=== PATIENT | female | born 1955 | race Native Hawaiian/Other Pacific Islander ===

== ENCOUNTER 2018-11-17 11:18 | Outpatient (CLI) | payer SELFPAY | END 2018-11-17 11:19 | disposition home or self-care (01) | LOC: CARDIO 11:18 | DX: C50.912 Malignant neoplasm of unspecified site of left female breast (principal); Z17.1 Estrogen receptor negative status [ER-]; C78.7 Secondary malignant neoplasm of liver and intrahepatic bile duct ==

== ENCOUNTER 2018-11-18 14:42 | Observation (INO) | payer MEDICAID, SELFPAY ==
[2018-11-18 15:43] VITALS: BMI 28.3
[2018-11-18] MEDS ORDERED: Sodium Chloride 0.9% 1,000 ML IV SCH (16:00)
--- NOTE | 2018-11-18 16:07 | ED PDOC ---
Arrival/HPI - General Time Seen by Provider: 11/18/18 15:29 Historian: Patient - History of Present Illness Narrative History of Present Illness (Text): 11/18/18 15:55 63 year old female, with past medical history of anemia, bronchitis, gallbladder disease, HTN, hypercholesterolemia, renal calculi, metastatic breast cancer s/p left breast mastectomy and metastasis to cerebellum and lungs on chemotherapy and radiation, CKD and seizure disorder, presents to the ED for evaluation of shortness of breath, dizziness and nausea since prior to arrival. Patient reports similar symptoms in August when she experienced loss of consciousness. Patient reports tingling sensation to her extremities secondary to chemotherapy. Patient denies any other somatic complaints. Patient denies any fever, chills, vomiting, diarrhea, abdominal pain, chest pain, headache, neck pain or any other complaints. Patient denies any smoking, drinking or illicit drug use. Oncologist/Market Research Intern: Dr. Pedro Time/Duration: 4-6 hours Symptom Onset: Gradual Symptom Course: Unchanged Context: Home Past Medical History - Provider Review Nursing Documentation Reviewed: Yes - Infectious Disease Hx of Infectious Diseases: None - Cardiac Hx Hypertension: Yes - Pulmonary Hx Bronchitis: Yes - Neurological Hx Seizures: Yes - HEENT Hx HEENT Disorder: No - Renal Hx Renal Disorder: Yes Hx Kidney Stones: Yes (Right kidney) - Endocrine/Metabolic Hx Endocrine Disorders: No - Hematological/Oncological Hx Anemia: Yes - Integumentary Hx Dermatological Disorder: No - Musculoskeletal/Rheumatological Hx Fractures: Yes (Right Wrist) - Gastrointestinal Hx Gall Bladder Disease: Yes - Genitourinary/Gynecological Hx Genitourinary Disorders: Yes Hx Hematuria: Yes Hx Urinary Tract Infection: Yes Other/Comment: HAS STENTS - Psychiatric Hx Substance Use: No - Surgical History Hx Mastectomy: Yes (LEFT MASTECTOMY 2006) Hx Vascular Access Device: Yes (RT. CHEST) Other/Comment: CYSTO WITH STENTS LITHOTRIPSY /LUNG BIOPSY CT GUIDED - Anesthesia Hx Anesthesia: Yes Hx Anesthesia Reactions: No Hx Malignant Hyperthermia: No - Suicidal Assessment Feels Threatened In Home Enviroment: No Family/Social History - Physician Review Nursing Documentation Reviewed: Yes Family/Social History: Unknown Family HX Smoking Status: Never Smoked Hx Alcohol Use: No Hx Substance Use: No Allergies/Home Meds Allergies/Adverse Reactions: Allergies lapatinib ditosylate [From Tykerb] Adverse Reaction (Verified 11/18/18 16:55) RASH Home Medications: Home Meds Medication Instructions Recorded Confirmed Lisinopril [Zestril] 5 mg PO DAILY 03/24/18 11/18/18 RX: Gabapentin 300 mg PO BID 03/24/18 11/18/18 RX: Levetiracetam 750 mg PO BID 03/24/18 11/18/18 oxyCODONE/Acetaminophen [Percocet 1 tab PO Q6 PRN 03/24/18 11/18/18 5/325 mg Tab] Dexamethasone [Decadron] 2 mg PO QOTHERDAY 11/18/18 11/18/18 Review of Systems - Physician Review All systems were reviewed & negative as marked: Yes - Review of Systems Constitutional: absent: Fevers Respiratory: SOB. absent: Cough Cardiovascular: absent: Chest Pain Gastrointestinal: Nausea. absent: Abdominal Pain, Diarrhea, Vomiting Genitourinary Female: absent: Dysuria, Hematuria Musculoskeletal: absent: Back Pain, Neck Pain Skin: absent: Rash Neurological: Dizziness. absent: Headache Physical Exam Temperature: Afebrile Blood Pressure: Normal Pulse: Regular Respiratory Rate: Normal Appearance: Positive for: Well-Appearing, Non-Toxic, Comfortable Pain Distress: None Mental Status: Positive for: Alert and Oriented X 3 - Systems Exam Head: Present: Atraumatic, Normocephalic Pupils: Present: PERRL Extroacular Muscles: Present: EOMI Conjunctiva: Present: Normal Ears: Present: Normal Mouth: Present: Moist Mucous Membranes Neck: Present: Normal Range of Motion. No: Meningeal Signs Respiratory/Chest: Present: Clear to Auscultation, Good Air Exchange. No: Respiratory Distress, Accessory Muscle Use Cardiovascular: Present: Regular Rate and Rhythm, Normal S1, S2. No: Murmurs Abdomen: No: Tenderness, Distention, Peritoneal Signs Back: Present: CVA Tenderness (left sided CVA tenderness) Upper Extremity: Present: Normal Inspection. No: Cyanosis, Edema Lower Extremity: Present: Normal Inspection. No: Edema Neurological: Present: GCS=15, CN II-XII Intact, Speech Normal Skin: Present: Warm, Dry, Normal Color. No: Rashes Psychiatric: Present: Alert, Oriented x 3, Normal Insight, Normal Concentration Medical Decision Making ED Course and Treatment: 11/18/18 15:55 Impression: 63 year old female presents to the ED for evaluation of sob, nausea and dizziness. On exam, pt notes she is unable to stand due to dizzines and feeling like she will syncopize, otherwise largely unremarkable neuro exam. Will seek CTPE for SOB. No fever, chills or night sweats. No trauma or fall. Pt denies any sudden onset of syncope or dizzy feeling, she notes progressive dizziness over the past week. Differential Diagnosis included but are not limited to: -- PE Plan: -- CTA -- EKG -- Labs -- IV Fluids -- zofran -- Urinalysis -- Reassess and disposition Prior Visits: Notes and results from previous visits were reviewed. Progress Notes: 11/18/18 21:25 labs largely unremarkable endorsed to Dr. Saenz- to admit to her service pt in NAD - RAD Interpretation Radiology Orders: 11/18/18 15:55 ANGIO CHEST PE PROTOCOL [CT] Stat - Medication Orders Current Medication Orders: Sodium Chloride (Sodium Chloride 0.9%) 1,000 mls @ 100 mls/hr IV .Q10H BAUDILIO Discontinued Medications Ondansetron HCl (Zofran Inj) 4 mg IVP STAT STA Stop: 11/18/18 15:56 - Scribe Statement The provider has reviewed the documentation as recorded by the Scribe Glen Mancini. All medical record entries made by the Scribe were at my direction and personally dictated by me. I have reviewed the chart and agree that the record accurately reflects my personal performance of the history, physical exam, medical decision making, and the department course for this patient. I have also personally directed, reviewed, and agree with the discharge instructions and disposition. Disposition/Present on Arrival - Present on Arrival Any Indicators Present on Arrival: No History of DVT/PE: No History of Uncontrolled Diabetes: No Urinary Catheter: No History Surgical Site Infection Following: None - Disposition Have Diagnosis and Disposition been Completed?: Yes Diagnosis: Dizzy Disposition Time: 20:28 Patient Problems: Current Active Problems Problem Status Onset Dizzy Acute Condition: STABLE
[2018-11-18 17:35] LABS: HEMOGLOBIN 13.9 g/dL (12.0-16.0); LYMPH # 0.6 (1.2-3.4); MEAN CELL VOLUME 86.5 fl (80.0-105.0); MEAN CORPUSCULAR HEMOGLOBIN 28.8 pg (25.0-35.0); MEAN CORPUSCULAR HGB CONC 33.3 g/dl (31.0-37.0); MEAN PLATELET VOLUME 8.6 fl (7.0-11.0); MONO # 0.2 (0.1-0.6); MONO % 3.7 % (1.0-6.0); RBC 4.82 10^6/uL (3.5-6.1); WHITE BLOOD COUNT 4.9 10^3/uL (4.5-11.0)
[2018-11-18 17:49] LABS: ALB/GLOB RATIO 1.2 (1.1-1.8); ALBUMIN 3.8 g/dL (3.0-4.8); ALT/SGPT 11 U/L (7-56); AST/SGOT 27 U/L (14-36); BLOOD UREA NITROGEN 15 mg/dL (7-21); CALCIUM 9.3 mg/dL (8.4-10.5); GFR NON-AFRICAN AMERICAN > 60
[2018-11-18 17:59] LABS: TROPONIN I < 0.01 ng/mL
[2018-11-18] MEDS ORDERED: Iodixanol 320 MG/ML 100 ML BOTTLE IV ONE (19:24)
--- NOTE | 2018-11-18 22:48 | CARD ---
APPROVED REPORT Date of service: 11/18/2018 EKG Measurement Heart [id number] <Conclusion> Normal sinus rhythm Moderate voltage criiteria for LVH Borderline ECG
--- NOTE | 2018-11-18 23:36 | CP.PCM.HP ---
<Radha Saenz - Last Filed: 11/19/18 02:07> Meds Allergies/Adverse Reactions: Allergies Allergy/AdvReac Type Severity Reaction Status Date / Time diphenhydramine AdvReac RASH Verified 11/18/18 23:35 [From Benadryl] lapatinib ditosylate AdvReac RASH Verified 11/18/18 16:55 [From Tykerb] Results - Vital Signs Recent Vital Signs: Last Vital Signs Temp 99 F 11/18/18 15:42 Pulse 78 11/18/18 18:36 Resp 18 11/18/18 18:36 BP 114/59 L 11/18/18 18:36 Pulse Ox 96 11/18/18 18:36 - Labs Result Diagrams: 11/18/18 17:20 11/18/18 17:20 Labs: Laboratory Results - last 24 hr 11/18/18 11/18/18 17:20 17:20 WBC 4.9 RBC 4.82 Hgb 13.9 Hct 41.7 MCV 86.5 MCH 28.8 MCHC 33.3 RDW 15.0 H Plt Count 171 MPV 8.6 Neut % (Auto) 83.3 H Lymph % (Auto) 13.0 L [place] % (Auto) 3.7 Eos % (Auto) 0.0 L Baso % (Auto) 0.0 Lymph # (Auto) 0.6 L [place] # (Auto) 0.2 Eos # (Auto) 0.0 Baso # (Auto) 0.00 Absolute Neuts (auto) 4.09 Sodium 139 Potassium 4.0 Chloride 105 Carbon Dioxide 27 Anion Gap 11 BUN 15 Creatinine 0.7 Est GFR ( Amer) > 60 Est GFR (Non-Af Amer) > 60 Random Glucose 147 H Calcium 9.3 Total Bilirubin 0.5 AST 27 ALT 11 Alkaline Phosphatase 87 Troponin I < 0.01 Total Protein 6.9 Albumin 3.8 Globulin 3.1 Albumin/Globulin Ratio 1.2 Attending/Attestation - Attestation I have personally seen and examined this patient.: Yes I have fully participated in the care of the patient.: Yes I have reviewed all pertinent clinical information: Yes Notes (Text): 11/19/18 02:10 Pt seen with the resident by the bedside. Case discussed in detail. Agree with documentation,assessment and plan of treatment. <Del Schofield - Last Filed: 11/19/18 05:27> History of Present Illness - History of Present Illness History of Present Illness: Del Schofield, PGY1 H&P for Dr. 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 In the ED, Vitals: Temp 99, HR 82, BP 134/63, RR 18, SaO2 95%. Medical team was consulted for evaluation. Patient said that she had a previous episode of loss of consciousness in August, in which she had a fall and passed out. She was told that she had a seizure and it was at that time she was found to have metastatic cancer to the brain. Patient was recommended cyberknife treatment but it was never pursued. She is on chemo and radiation therapy. Last radiation therapy was on October 16, which she gets every 15 days or so. She said that since taking her chemo medications she has been feeling sick with associated dizziness and nausea. She has followed up with her heme/onc physician for over 10 years and she goes r egularly almost every 3 weeks. Patient mentions that she gets numbness and tingling in all her distal extremities. Otherwise, patient denies fevers, chills, diarrhea, abdominal pain, chest pain, and headache. was present at bedside. A full 12 point ROS was conducted and unremarkable except as stated above. PMD: Dr. Jones Heme/Onc: Dr. Schofieldanthingal Neurologist: Dr. Forman PMHx: anemia, bronchitis, gallbladder disease, HTN, hypercholesterolemia, renal calculi, metastatic breast cancer s/p left breast mastectomy and metastasis to brain and lungs on chemotherapy and radiation, CKD and seizure disorder PSHx: Left Breast Mastectomy with axillary evgeny removal Meds: see MAR Allergies: lapatinib ditosylate, benadryl SocialHx: denies smoking, EtOH, and recreational drug use. Lives with . 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 FamHx: aunt had breast cancer Present on Admission - Present on Admission Any Indicators Present on Admission: No Review of Systems - Review of Systems All systems: reviewed and no additional remarkable complaints except (as per HPI) Past Patient History - Infectious Disease Hx of Infectious Diseases: None - Past Medical History & Family History Past Medical History?: Yes - Past Social History Smoking Status: Never Smoked - CARDIAC Hx Hypertension: Yes - PULMONARY Hx Bronchitis: Yes - NEUROLOGICAL Hx Seizures: Yes - HEENT Hx HEENT Problems: No - RENAL Hx Chronic Kidney Disease: Yes Hx Kidney Stones: Yes (Right kidney) - ENDOCRINE/METABOLIC Hx Endocrine Disorders: No - HEMATOLOGICAL/ONCOLOGICAL Hx Anemia: Yes - INTEGUMENTARY Hx Dermatological Problems: No - MUSCULOSKELETAL/RHEUMATOLOGICAL Hx Fractures: Yes (Right Wrist) - GASTROINTESTINAL Hx Gall Bladder Disease: Yes - GENITOURINARY/GYNECOLOGICAL Hx Genitourinary Disorders: Yes Hx Hematuria: Yes Hx Urinary Tract Infection: Yes Other/Comment: HAS STENTS - PSYCHIATRIC Hx Substance Use: No - SURGICAL HISTORY Hx Mastectomy: Yes (LEFT MASTECTOMY 2006) Hx Vascular Access Device: Yes (RT. CHEST) Other/Comment: CYSTO WITH STENTS LITHOTRIPSY /LUNG BIOPSY CT GUIDED - ANESTHESIA Hx Anesthesia: Yes Hx Anesthesia Reactions: No Hx Malignant Hyperthermia: No Physical Exam - Constitutional Appears: No Acute Distress - Head Exam Head Exam: ATRAUMATIC, NORMOCEPHALIC Additional comments: No hair due to chemo/rads treatments. - Eye Exam Eye Exam: EOMI, Normal appearance - ENT Exam ENT Exam: Mucous Membranes Moist - Respiratory Exam Respiratory Exam: Clear to Auscultation Bilateral. absent: Accessory Muscle Use, Rales, Rhonchi, Wheezes - Cardiovascular Exam Cardiovascular Exam: RRR, +S1, +S2 Additional comments: Left-Breast mastectomy evident. - GI/Abdominal Exam GI & Abdominal Exam: Normal Bowel Sounds, Soft. absent: Distended, Firm, Guarding, Rebound, Rigid, Tenderness - Extremities Exam Extremities exam: Positive for: normal capillary refill, normal inspection, pedal pulses present. Negative for: calf tenderness - Back Exam Back exam: NORMAL INSPECTION - Neurological Exam Neurological exam: Alert, CN II-XII Intact, Oriented x3 Additional comments: Sensation is intact in all extremities. But subjectively she notes numbness/tingling in the face, distal hands and soles of both feet. - Psychiatric Exam Psychiatric exam: Normal Affect, Normal Mood - Skin Skin Exam: Dry, Intact, Normal Color, Warm Results - Vital Signs Recent Vital Signs: Last Vital Signs Temp 99 F 11/18/18 15:42 Pulse 78 11/18/18 18:36 Resp 18 11/18/18 18:36 BP 114/59 L 11/18/18 18:36 Pulse Ox 96 11/18/18 18:36 - Labs Result Diagrams: 11/18/18 17:20 11/18/18 17:20 Labs: Laboratory Results - last 24 hr 11/18/18 11/18/18 17:20 17:20 WBC 4.9 RBC 4.82 Hgb 13.9 Hct 41.7 MCV 86.5 MCH 28.8 MCHC 33.3 RDW 15.0 H Plt Count 171 MPV 8.6 Neut % (Auto) 83.3 H Lymph % (Auto) 13.0 L [place] % (Auto) 3.7 Eos % (Auto) 0.0 L Baso % (Auto) 0.0 Lymph # (Auto) 0.6 L [place] # (Auto) 0.2 Eos # (Auto) 0.0 Baso # (Auto) 0.00 Absolute Neuts (auto) 4.09 Sodium 139 Potassium 4.0 Chloride 105 Carbon Dioxide 27 Anion Gap 11 BUN 15 Creatinine 0.7 Est GFR ( Amer) > 60 Est GFR (Non-Af Amer) > 60 Random Glucose 147 H Calcium 9.3 Total Bilirubin 0.5 AST 27 ALT 11 Alkaline Phosphatase 87 Troponin I < 0.01 Total Protein 6.9 Albumin 3.8 Globulin 3.1 Albumin/Globulin Ratio 1.2 Assessment & Plan - Assessment and Plan (Free Text) Assessment: Patient is a 63 year old female, with PMHx of anemia, bronchitis, gallbladder disease, HTN, hypercholesterolemia, renal calculi, metastatic breast cancer s/p left breast mastectomy and metastasis to brain and lungs on chemotherapy and radiation, CKD and seizure disorder, presented to the ED for evaluation of pre- syncope, dizziness, and nausea prior to arrival. Patient will be admitted to telemetry for pre-syncope. Plan: Pre-syncope - May be related to medication side effects of chemotherapy with mets to brain - carotid doppler - orthostatic vital signs - TSH - admit to tele for monitoring - f/u EKG in morning - EKG: NSR at [address] or T wave changes. Dizziness, Nausea, and Peripheral Neuropathy 2/2 Chemo Adverse Effects vs Mets - c/w zofran for nausea - Consider vincristine as possible cause of peripheral neuropathy - c/w home med gabapentin - initial trop was negative x1; trend trops q6 - Patient was also initially short of breath in the ED, f/u results of Chest CT to r/o PE given [place] Criteria - IVF NS @ 100 cc/hr Hx of Metastatic Breast Cancer with Mets to Brain and Lungs - CT Head with contrast - Heme/onc consulted (Dr. Ascencio) - c/w dexamethasone - Hx of left breast mastectomy - Patient is on chemo and radiation therapy Hx HTN - c/w Lisinopril home med Hx Seizures - c/w Keppra home med - neurochecks - seizure precautions - aspiration precautions - Fall precautions Dispo: Monitor patient on telemetry. Diet: HHD GI ppx: ptx DVT ppx: hep sc Case was discussed and reviewed with Attending Physician, Dr. Saenz
[2018-11-19 05:29] LABS: PH,URINE 6.5 (4.7-8.0); URINE BILIRUBIN NEGATIVE (NEGATIVE); URINE BLOOD NEGATIVE (NEGATIVE); URINE GLUCOSE (UA) NEGATIVE (NEGATIVE); URINE LEUKOCYTE ESTERASE NEGATIVE Leu/uL (NEGATIVE); URINE PROTEIN NEGATIVE mg/dL (<30 mg/dL); URINE UROBILINOGEN 0.2 E.U./dL (<1 E.U./dL)
[2018-11-19 05:33] LABS: URINE APPEARANCE CLEAR (CLEAR); URINE COLOR YELLOW (YELLOW)
[2018-11-19] MEDS ORDERED: Pantoprazole 40 mg EC Tab PO SCH (06:00)
[2018-11-19 07:28] LABS: HEMOGLOBIN 11.3 g/dL (12.0-16.0); MEAN CELL VOLUME 86.4 fl (80.0-105.0); MEAN CORPUSCULAR HGB CONC 33.6 g/dl (31.0-37.0); MEAN PLATELET VOLUME 8.2 fl (7.0-11.0); RBC 3.89 10^6/uL (3.5-6.1); RED CELL DISTRIBUTION WIDTH 14.9 % (11.5-14.5); WHITE BLOOD COUNT 5.4 10^3/uL (4.5-11.0)
[2018-11-19 07:51] VITALS: RESP 20
[2018-11-19 07:58] LABS: ALB/GLOB RATIO 1.1 (1.1-1.8); ALBUMIN 3.3 g/dL (3.0-4.8); ALT/SGPT 14 U/L (7-56); AST/SGOT 22 U/L (14-36); BLOOD UREA NITROGEN 15 mg/dL (7-21); CALCIUM 8.7 mg/dL (8.4-10.5); GFR NON-AFRICAN AMERICAN > 60
[2018-11-19 08:04] LABS: TROPONIN I < 0.01 ng/mL
[2018-11-19] MEDS ORDERED: Iohexol 300 100 ML IJ ONE (08:08)
[2018-11-19 08:33] VITALS: O2SAT 97
[2018-11-19 09:01] LABS: HDL CHOLESTEROL 44 mg/dL (29-60)
[2018-11-19 09:12] LABS: LDL CHOLESTEROL 141 mg/dL (0-129)
--- NOTE | 2018-11-19 09:17 | CT ---
Date of service: 11/19/2018 PROCEDURE: CT HEAD WITH CONTRAST HISTORY: hx of brain mets COMPARISON: None available. TECHNIQUE: Axial computed tomography images were obtained through the head/brain with intravenous contrast. Contrast dose: Omnipaque 300, 100 cc Radiation dose: Total exam DLP = 1122.95 mGy-cm. This CT exam was performed using one or more of the following dose reduction techniques: Automated exposure control, adjustment of the mA and/or kV according to patient size, and/or use of iterative reconstruction technique. FINDINGS: Note CT examination of the brain with contrast should not be ordered without a preliminary unenhanced CT immediately prior to or least within the recent past 1 or 2 days. HEMORRHAGE: No intracranial hemorrhage. BRAIN: No mass, mass effect or edema. No abnormal intracranial enhancement. No atrophy or chronic microvascular ischemic changes. VENTRICLES: Unremarkable. No hydrocephalus. CALVARIUM: Unremarkable. PARANASAL SINUSES: Unremarkable as visualized. No significant inflammatory changes. MASTOID AIR CELLS: Unremarkable as visualized. No mastoid effusion. OTHER FINDINGS: None. IMPRESSION: Unremarkable contrast enhanced CT of the head.
--- NOTE | 2018-11-19 09:45 | CT ---
Date of service: 11/18/2018 PROCEDURE: CT Chest with contrast (Pulmonary Angiogram) HISTORY: sob COMPARISON: None available. TECHNIQUE: Axial computed tomography images were obtained of the chest in the pulmonary arterial phase of enhancement. Coronal and sagittal reformatted images were created and reviewed. Intravenous contrast dose: 100 cc of Visipaque Radiation dose: Total exam DLP = 459.44 mGy-cm. This CT exam was performed using one or more of the following dose reduction techniques: Automated exposure control, adjustment of the mA and/or kV according to patient size, and/or use of iterative reconstruction technique. FINDINGS: PULMONARY ARTERIES: Unremarkable. No pulmonary embolism. AORTA: No acute findings. No thoracic aortic aneurysm. No aortic atherosclerotic calcification or mural plaque present. LUNGS: Unremarkable. No nodule, mass or pulmonary consolidation. PLEURAL SPACES: Unremarkable. No effusion or pneumothorax. HEART: Unremarkable. No cardiomegaly. No significant pericardial effusion. LYMPH NODES: There is a large mass in the left axilla measuring 3.1 x 4.6 cm suspicious for a evgeny metastasis. BONES, CHEST WALL: Unremarkable. No fracture or destructive lesion OTHER FINDINGS: The report concurs with the preliminary [facility] report IMPRESSION: There is a large mass in the left axilla measuring 3.1 x 4.6 cm suspicious for a evgeny metastasis. Large gallstone No evidence of pulmonary embolus
--- NOTE | 2018-11-19 10:05 | CARD ---
APPROVED REPORT Date of service: 11/19/2018 EKG Measurement Heart [id number] <Conclusion> Normal sinus rhythm Moderate voltage criteria for LVH, may be normal variant Borderline ECG
--- NOTE | 2018-11-19 12:04 | US ---
PROCEDURE: Bilateral carotid artery duplex ultrasound HISTORY: Carotid stenosis syncope PHYSICIAN(S): Moshe Peng MD. TECHNIQUE: Duplex sonography and color-flow Doppler were used to evaluate the carotid bifurcations and limited segments of the vertebral arteries bilaterally. FINDINGS: There is mild smooth hypoechoic plaque noted at the carotid bifurcations bilaterally. The peak systolic velocity in the proximal right internal carotid artery is 70 cm/sec. This corresponds to a 20 to 39% proximal right ICA stenosis. Normal systolic velocities are noted in the proximal right external carotid artery. There is antegrade flow in the right vertebral artery. The peak systolic velocity in the proximal left internal carotid artery is 69 cm/sec. This corresponds to a 20 to 39% proximal left ICA stenosis. Normal systolic velocities are noted in the proximal left external carotid artery. There is antegrade flow in the left vertebral artery. IMPRESSION: 1. Bilateral 20-39% proximal ICA stenoses. 2. Antegrade flow in both vertebral arteries.
[2018-11-19 15:17] LABS: BLOOD UREA NITROGEN 17 mg/dL (7-21); CALCIUM 8.6 mg/dL (8.4-10.5); GFR NON-AFRICAN AMERICAN > 60
--- NOTE | 2018-11-19 15:56 | CP.PCM.DIS ---
<Shannan Sutton - Last Filed: 11/19/18 19:10> Provider - Provider Date of Admission: 11/18/18 20:56 Attending physician: Alicia Morris MD Primary care physician: Dr. Jones Consults: 11/18/18 22:24 Physician Consult Routine Comment: Consulting Provider: Sarath Ascencio Consulting Physician: Sarath Ascencio Reason for Consult: Hx of metastatic breast cancer Time Spent in preparation of Discharge (in minutes): 45 Diagnosis - Discharge Diagnosis (1) Near syncope Status: Acute Hospital Course - Lab Results Lab Results: Most Recent Lab Values WBC 5.4 10^3/uL (4.5-11.0) 11/19/18 07:20 RBC 3.89 10^6/uL (3.5-6.1) 11/19/18 07:20 Hgb 11.3 g/dL (12.0-16.0) L D 11/19/18 07:20 Hct 33.6 % (36.0-48.0) L 11/19/18 07:20 MCV 86.4 fl (80.0-105.0) 11/19/18 07:20 MCH 29.0 pg (25.0-35.0) 11/19/18 07:20 MCHC 33.6 g/dl (31.0-37.0) 11/19/18 07:20 RDW 14.9 % (11.5-14.5) H 11/19/18 07:20 Plt Count 175 10^3/uL (120.0-450.0) 11/19/18 07:20 MPV 8.2 fl (7.0-11.0) 11/19/18 07:20 Neut % (Auto) 83.3 % (50.0-68.0) H 11/18/18 17:20 Lymph % (Auto) 13.0 % (22.0-35.0) L 11/18/18 17:20 [place] % (Auto) 3.7 % (1.0-6.0) 11/18/18 17:20 Eos % (Auto) 0.0 % (1.5-5.0) L 11/18/18 17:20 Baso % (Auto) 0.0 % (0.0-3.0) 11/18/18 17:20 Lymph # (Auto) 0.6 (1.2-3.4) L 11/18/18 17:20 [place] # (Auto) 0.2 (0.1-0.6) 11/18/18 17:20 Eos # (Auto) 0.0 (0.0-0.7) 11/18/18 17:20 Baso # (Auto) 0.00 K/mm3 (0.0-2.0) 11/18/18 17:20 Absolute Neuts (auto) 4.09 (1.4-6.5) 11/18/18 17:20 Sodium 137 mmol/L (132-148) 11/19/18 14:55 Potassium 4.0 mmol/L (3.6-5.0) 11/19/18 14:55 Chloride 106 mmol/L (98-107) 11/19/18 14:55 Carbon Dioxide 27 mmol/L (21-33) 11/19/18 14:55 Anion Gap 9 (10-20) L 11/19/18 14:55 BUN 17 mg/dL (7-21) 11/19/18 14:55 Creatinine 0.9 mg/dl (0.7-1.2) 11/19/18 14:55 Est GFR ( Amer) > 60 11/19/18 14:55 Est GFR (Non-Af Amer) > 60 11/19/18 14:55 Random Glucose 107 mg/dL (70-110) 11/19/18 14:55 Calcium 8.6 mg/dL (8.4-10.5) 11/19/18 14:55 Phosphorus 3.3 mg/dL (2.5-4.5) 11/19/18 07:20 Magnesium 1.9 mg/dL (1.7-2.2) 11/19/18 07:20 Total Bilirubin 0.5 mg/dL (0.2-1.3) 11/19/18 07:20 AST 22 U/L (14-36) 11/19/18 07:20 ALT 14 U/L (7-56) 11/19/18 07:20 Alkaline Phosphatase 71 U/L (38-126) 11/19/18 07:20 Troponin I < 0.01 ng/mL 11/19/18 12:25 Total Protein 6.2 g/dL (5.8-8.3) 11/19/18 07:20 Albumin 3.3 g/dL (3.0-4.8) 11/19/18 07:20 Globulin 2.9 gm/dL 11/19/18 07:20 Albumin/Globulin Ratio 1.1 (1.1-1.8) 11/19/18 07:20 Triglycerides 105 mg/dL (35-160) 11/19/18 07:20 Cholesterol 218 mg/dL (130-200) H 11/19/18 07:20 LDL Cholesterol Direct 141 mg/dL (0-129) H 11/19/18 07:20 HDL Cholesterol 44 mg/dL (29-60) 11/19/18 07:20 Free T4 1.32 ng/dL (0.78-2.19) 11/19/18 08:30 TSH 3rd Generation 0.39 mIU/mL (0.46-4.68) L 11/18/18 17:20 Urine Color Yellow (YELLOW) 11/19/18 04:30 Urine Appearance Clear (CLEAR) 11/19/18 04:30 Urine pH 6.5 (4.7-8.0) 11/19/18 04:30 Ur Specific [place] 1.010 (1.005-1.035) 11/19/18 04:30 Urine Protein Negative mg/dL (<30 mg/dL) 11/19/18 04:30 Urine Glucose (UA) Negative mg/dL (NEGATIVE) 11/19/18 04:30 Urine Ketones Negative mg/dL (NEGATIVE) 11/19/18 04:30 Urine Blood Negative (NEGATIVE) 11/19/18 04:30 Urine Nitrate Negative (NEGATIVE) 11/19/18 04:30 Urine Bilirubin Negative (NEGATIVE) 11/19/18 04:30 Urine Urobilinogen 0.2 E.U./dL (<1 E.U./dL) 11/19/18 04:30 Ur Leukocyte Esterase Negative [place]/uL (NEGATIVE) 11/19/18 04:30 - Hospital Course Hospital Course: Upon Admission: Pt is a 63 year old female, with pmhx of anemia, bronchitis, gallbladder disease, HTN, hypercholesterolemia, renal calculi, metastatic breast cancer s/p left breast mastectomy and metastasis to brain and lungs on chemotherapy and radiation, CKD and seizure disorder, presented to the ED for evaluation of pre- syncope, dizziness, and nausea prior to arrival. In the ED, Vitals: Temp 99, HR 82, BP 134/63, RR 18, SaO2 95%. Medical team was consulted for evaluation. Patient stated that she had a sudden episode of SOB and began to feel lightheaded and dizzy upon standing from seated position. Patient said that she had a previous episode of loss of consciousness in August, in which she had a fall and passed out. She was told that she had a seizure and it was at that time she was found to have metastatic cancer to the brain. Patient was recommended cyberknife treatment but it was never pursued. She is on chemo and radiation therapy. Last radiation therapy was on October 16, which she gets every 15 days or so. She said that since taking her chemo medications she has been feeling sick with associated dizziness and nausea. She has followed up with her heme/onc physician for over 10 years and she goes regularly almost every 3 weeks. Patient mentions that she gets numbness and tingling in all her distal extremities. Otherwise, patient denies fevers, chills, diarrhea, abdominal pain, chest pain, and headache. was present at bedside. Hospital Course: Pt was evaluated for near syncope and was admitted to the tele floors. Pt has hx of breast ca with mets to the brain s/p whole brain radiation, last radiation treatment 10/16/18. Pt states that she has recurrent feeling of lightheadedness when she attempts to stand quickly from a sitting position. Pt also states that she has been attempting to gain more strength and return to normal functioning prior to the radiation treatments, so the pt has been ambulating without her walker for days. She noticed SOB, and lightheadedness when attempting to stand up to ambulate. Pt states that she has not been drinking enough water lately and notices the lightheadedness worse when she attempts to stand quickly after being seated for a long period of time. Pt had CTA done in ED which did not show PE, it also showed a L axillary mass measuring 3.1x4.6cm which the pt states she was already informed about the mass. Pt had carotid US done, which showed: b/l 20- 39% stenosis of the proximal ICA. It also showed antegrade flow in both vertebral arteries. Finally pt had CT head with contrast which showed: unremarkable contrast enhanced CT of head. Pt was informed to repeat BMP with PMD on Saturday to continue to monitor renal status, the repeat of BMP in the hospital was wnl and showed no elevation in Cr. Physical therapy saw the pt and states that the pt is cleared for d/c home. Pt states that her lightheadedness is improving with the fluids and the pt is educated on rising slowly from a seated or supine position. Pt educated to slowly first sit up and then put legs over the bed and then transition to standing after 1 minute and then stand up still for 1 minute before moving to ensure that the body has time to accommodate to change in position. Pt also educated to drink more fluids to prevent further episodes of orthostatic hypotension. Pt was informed of plan for discharge and the pt expressed understanding and agreement with plan for discharge with follow up with PMD and heme/onc physician. All of the pts questions and concerns were addressed prior to d/c. For further details please refer to full medical records. Discharge Exam - Head Exam Head Exam: ATRAUMATIC, NORMAL INSPECTION, NORMOCEPHALIC - Eye Exam Eye Exam: EOMI, Normal appearance, PERRL - Respiratory Exam Respiratory Exam: Clear to PA & Lateral, NORMAL BREATHING PATTERN, UNREMARKABLE. absent: Accessory Muscle Use, Rales, Rhonchi, Wheezes, Respiratory Distress, Stridor - Cardiovascular Exam Cardiovascular Exam: RRR, +S1, +S2. absent: Gallop, Rubs - GI/Abdominal Exam GI & Abdominal Exam: Normal Bowel Sounds, Soft, Unremarkable. absent: Distended, Firm, Guarding, Tenderness - Extremities Exam Extremities exam: normal inspection - Back Exam Back exam: NORMAL INSPECTION. absent: CVA tenderness (L), CVA tenderness (R) - Neurological Exam Neurological exam: Alert, Oriented x3 - Psychiatric Exam Psychiatric exam: Normal Affect, Normal Mood - Skin Skin Exam: Dry, Normal Color, Warm Discharge Plan - Discharge Medications Prescriptions: RX: Atorvastatin [Lipitor] 20 mg PO DIN 30 Days #30 tab - Follow Up Plan Condition: STABLE Disposition: HOME/ ROUTINE Instructions: Dizziness, Nonvertigo, (DC) Additional Instructions: - Please follow up with your primary care doctor, Dr. Jones, within 1 week of discharge. - Please have a BMP (blood test) drawn from your primary care doctor on Saturday (11/24/18) to continue to monitor your kidneys. - Please ensure that you are drinking enough fluids throughout the day. - We have prescribed you a new medication: Atorvastatin 20mg by mouth once daily at dinner time for your high cholesterol. Please follow up with your primary care doctor in regards to continuing this medication. - Please continue your home medications as directed - Please follow up with your Lathe Scalper Operator/oncologist, Dr. Pedro within 1 week of discharge. - As you were educated previously, please rise slowly from seated or lying position and allow for enough time (approx 1 min) prior to walking, as directed by medical and physical therapy team to prevent yourself from becoming lightheaded. - If you begin to have any new or worsening symptoms please return to the nearest emergency department. Referrals: Maral Antoine MD [Staff Provider] - Jessica Jones [Medical Doctor] - <Alicia Morris - Last Filed: 11/20/18 14:57> Provider - Provider Date of Admission: 11/18/18 20:56 Attending physician: Alicia Morris MD Primary care physician: NO PRIMARY CARE PROVIDER Consults: 11/18/18 22:24 Physician Consult Routine Comment: Consulting Provider: Sarath Ascencio Consulting Physician: Sarath Ascencio Reason for Consult: Hx of metastatic breast cancer Hospital Course - Lab Results Lab Results: Most Recent Lab Values WBC 5.4 10^3/uL (4.5-11.0) 11/19/18 07:20 RBC 3.89 10^6/uL (3.5-6.1) 11/19/18 07:20 Hgb 11.3 g/dL (12.0-16.0) L D 11/19/18 07:20 Hct 33.6 % (36.0-48.0) L 11/19/18 07:20 MCV 86.4 fl (80.0-105.0) 11/19/18 07:20 MCH 29.0 pg (25.0-35.0) 11/19/18 07:20 MCHC 33.6 g/dl (31.0-37.0) 11/19/18 07:20 RDW 14.9 % (11.5-14.5) H 11/19/18 07:20 Plt Count 175 10^3/uL (120.0-450.0) 11/19/18 07:20 MPV 8.2 fl (7.0-11.0) 11/19/18 07:20 Neut % (Auto) 83.3 % (50.0-68.0) H 11/18/18 17:20 Lymph % (Auto) 13.0 % (22.0-35.0) L 11/18/18 17:20 [place] % (Auto) 3.7 % (1.0-6.0) 11/18/18 17:20 Eos % (Auto) 0.0 % (1.5-5.0) L 11/18/18 17:20 Baso % (Auto) 0.0 % (0.0-3.0) 11/18/18 17:20 Lymph # (Auto) 0.6 (1.2-3.4) L 11/18/18 17:20 [place] # (Auto) 0.2 (0.1-0.6) 11/18/18 17:20 Eos # (Auto) 0.0 (0.0-0.7) 11/18/18 17:20 Baso # (Auto) 0.00 K/mm3 (0.0-2.0) 11/18/18 17:20 Absolute Neuts (auto) 4.09 (1.4-6.5) 11/18/18 17:20 Sodium 137 mmol/L (132-148) 11/19/18 14:55 Potassium 4.0 mmol/L (3.6-5.0) 11/19/18 14:55 Chloride 106 mmol/L (98-107) 11/19/18 14:55 Carbon Dioxide 27 mmol/L (21-33) 11/19/18 14:55 Anion Gap 9 (10-20) L 11/19/18 14:55 BUN 17 mg/dL (7-21) 11/19/18 14:55 Creatinine 0.9 mg/dl (0.7-1.2) 11/19/18 14:55 Est GFR ( Amer) > 60 11/19/18 14:55 Est GFR (Non-Af Amer) > 60 11/19/18 14:55 Random Glucose 107 mg/dL (70-110) 11/19/18 14:55 Calcium 8.6 mg/dL (8.4-10.5) 11/19/18 14:55 Phosphorus 3.3 mg/dL (2.5-4.5) 11/19/18 07:20 Magnesium 1.9 mg/dL (1.7-2.2) 11/19/18 07:20 Total Bilirubin 0.5 mg/dL (0.2-1.3) 11/19/18 07:20 AST 22 U/L (14-36) 11/19/18 07:20 ALT 14 U/L (7-56) 11/19/18 07:20 Alkaline Phosphatase 71 U/L (38-126) 11/19/18 07:20 Troponin I < 0.01 ng/mL 11/19/18 12:25 Total Protein 6.2 g/dL (5.8-8.3) 11/19/18 07:20 Albumin 3.3 g/dL (3.0-4.8) 11/19/18 07:20 Globulin 2.9 gm/dL 11/19/18 07:20 Albumin/Globulin Ratio 1.1 (1.1-1.8) 11/19/18 07:20 Triglycerides 105 mg/dL (35-160) 11/19/18 07:20 Cholesterol 218 mg/dL (130-200) H 11/19/18 07:20 LDL Cholesterol Direct 141 mg/dL (0-129) H 11/19/18 07:20 HDL Cholesterol 44 mg/dL (29-60) 11/19/18 07:20 Free T4 1.32 ng/dL (0.78-2.19) 11/19/18 08:30 TSH 3rd Generation 0.39 mIU/mL (0.46-4.68) L 11/18/18 17:20 Urine Color Yellow (YELLOW) 11/19/18 04:30 Urine Appearance Clear (CLEAR) 11/19/18 04:30 Urine pH 6.5 (4.7-8.0) 11/19/18 04:30 Ur Specific [place] 1.010 (1.005-1.035) 11/19/18 04:30 Urine Protein Negative mg/dL (<30 mg/dL) 11/19/18 04:30 Urine Glucose (UA) Negative mg/dL (NEGATIVE) 11/19/18 04:30 Urine Ketones Negative mg/dL (NEGATIVE) 11/19/18 04:30 Urine Blood Negative (NEGATIVE) 11/19/18 04:30 Urine Nitrate Negative (NEGATIVE) 11/19/18 04:30 Urine Bilirubin Negative (NEGATIVE) 11/19/18 04:30 Urine Urobilinogen 0.2 E.U./dL (<1 E.U./dL) 11/19/18 04:30 Ur Leukocyte Esterase Negative [place]/uL (NEGATIVE) 11/19/18 04:30 Attending/Attestation - Attestation I have personally seen and examined this patient.: Yes I have fully participated in the care of the patient.: Yes I have reviewed all pertinent clinical information, including history, physical exam and plan: Yes Notes (Text): 11/20/18 14:51 Patient was seen and examined with medical records manager. 63 year old female, with PMH of of metastatic breast cancer s/p left breast mastectomy and metastasis to brain and lungs ,SP chemotherapy and radiation, and seizure disorder, presented to the ED for evaluation of pre-syncope, dizziness, and nausea prior to arrival. There was no focal deficit.There was no H/O lose of consciousness. Chest CT was negative for Pulmonary embolism. CT head with IV contrast was done which was did not show any acute pathology. Patient symptoms has improved.She is ambulatory. Renal functions are stable. She will be discharged home and will follow up with PCP and Oncology. Management plan was discussed in detail with patient. Education was provided.
[2018-11-19 17:02] VITALS: BP 152/85; PULSE 70; TEMP 97.9
--- NOTE | 2018-11-19 20:14 | CON ---
DATE: 11/19/2018 HISTORY OF PRESENT ILLNESS: This is a 63-year-old woman with widely metastatic breast cancer. My partner has been taking care of her for several years. Most recently, she developed brain metastasis and she received radiation therapy to her brain, that was completed beginning of October, that is 6 weeks ago. Patient was doing okay at home. She was walking with a walker and taking her time, but she states she started getting weaker, weaker in the knees, was not eating as well and so that is why she is back in the hospital. PHYSICAL EXAMINATION: SKIN: No petechiae. No bruises. HEENT: Anicteric. Nodes nonpalpable in the axillary, cervical, and supraclavicular, or inguinal regions. LUNGS: Clear at present. No vertebral tenderness. HEART: S1 and S2. ABDOMEN: Shows no liver, no spleen, no tenderness. EXTREMITIES: No edema. TITLE PROCESSOR: No focal finding . ASSESSMENT AND PLAN: She is generally weaker, may be this is due to the brain metastasis. I did a repeat CAT scan or MRI, but mostly requires to see if there is any recurring cancer. In the meantime for now, she is getting supportive therapy. If she gets discharged, she knows to come back to the office possibly for next week, but right now, she is jut getting supportive treatment. Sarath Ascencio MD
== END 2018-11-19 17:27 | disposition home or self-care (01) ==
LOC: ED 14:42 → ERH 20:56 → 3RNO 11-19 03:40
PROVIDERS: ADMIT Internal Medicine; ATTEND Internal Medicine
DX: R55 Syncope and collapse (principal); G40.909 Epilepsy, unspecified, not intractable, without status epilepticus; I12.9 Hypertensive chronic kidney disease with stage 1 through stage 4 chronic kidney disease, or unspecified chronic kidney disease; N18.9 Chronic kidney disease, unspecified; E78.00 Pure hypercholesterolemia, unspecified; C79.31 Secondary malignant neoplasm of brain; C78.00 Secondary malignant neoplasm of unspecified lung; C50.919 Malignant neoplasm of unspecified site of unspecified female breast; T45.1X5A Adverse effect of antineoplastic and immunosuppressive drugs, initial encounter; Z80.3 Family history of malignant neoplasm of breast; Z87.440 Personal history of urinary (tract) infections; Z87.442 Personal history of urinary calculi; Z90.12 Acquired absence of left breast and nipple
CPT/HCPCS: 36415; 70460; 71275; 80053; 80061; 81003; 83735; 84100; 84439; 84443; 84484; 85025; 85027; 93005; 93880; 96374; 97116; 97161; 99285; G0378; G8978; G8979; J2405; J7030; Q9967

== ENCOUNTER 2019-01-23 05:52 | Outpatient (CLI) | payer MEDICAID, SELFPAY | END 2019-01-23 05:53 | disposition home or self-care (01) | LOC: PET-BROA 05:52 ==

== ENCOUNTER 2019-02-02 13:03 | Outpatient (CLI) | payer MEDICAID | END 2019-02-02 13:04 | disposition home or self-care (01) | LOC: LAB 13:03 ==

== ENCOUNTER 2019-02-03 07:44 | Outpatient (CLI) | payer MEDICAID | END 2019-02-03 07:45 | disposition home or self-care (01) | LOC: RAD 07:44 ==